=== PATIENT | female | born 1990 | race Two or more races ===

== ENCOUNTER 2020-08-17 02:23 | Emergency (ER) | payer MEDICAID ==
[~2020-08-17] VITALS: Ht 165.1 cm; Wt 68.0 kg
[2020-08-17 03:39] VITALS: BP 113/61
== END 2020-08-17 03:48 | disposition home or self-care (01) ==
LOC: ER 02:23
DX: S20.372A Other superficial bite of left front wall of thorax, initial encounter (principal); S80.811A Abrasion, right lower leg, initial encounter; Y04.1XXA Assault by human bite, initial encounter; Y93.89 Activity, other specified; Y92.59 Other trade areas as the place of occurrence of the external cause
CPT/HCPCS: 93005; 99283